=== PATIENT | female | born 1995 | race Caucasian/White ===

== ENCOUNTER 2023-05-31 18:15 | Emergency (ER) | payer OTHER | END 2023-05-31 21:12 | disposition home or self-care (01) | LOC: ERS 18:15 | DX: S06.0X0A Concussion without loss of consciousness, initial encounter (principal); Z86.59 Personal history of other mental and behavioral disorders; Z98.2 Presence of cerebrospinal fluid drainage device; V43.63XA Car passenger injured in collision with pick-up truck in traffic accident, initial encounter | CPT/HCPCS: 70450; 75809 ==